=== PATIENT | female | born 1990 | race Caucasian/White ===

== ENCOUNTER 2022-09-26 12:16 | Inpatient (IN) ==
[2022-09-26] MEDS ORDERED: SODIUM CHLORIDE 0.9% 1000ML 1,000 ML IV ONE (13:06)
[2022-09-26 13:46] LABS: Basophils # (auto) 0.08 K/uL (0-0.2); Basophils % (auto) 0.6 %; Eosinophils # (auto) 0.44 K/uL (0-0.50); Hematocrit (blood only) 37.8 % (37.0-47.0); Hemoglobin 11.8 g/dl (12.0-16.0); Immature Granulocytes # (auto) 0.06 K/uL (0.01-0.20); Immature Granulocytes % (auto) 0.4 %; Lymphocytes # (auto) 2.57 K/uL (1.2-3.4); Lymphocytes % (auto) 17.8 %; Mean Corpuscular Hemoglobin 24.1 pg (25.0-34.0); Mean Corpuscular Hgb Conc 31.2 g/dL (32.0-36.0); Mean Corpuscular Volume 77.1 fL (80.0-100.0); Mean Platelet Volume 10.2 fL (9.4-12.4); Monocytes # (auto) 0.86 K/uL (0.11-0.59); Monocytes % (auto) 5.9 %; Neutrophils # (auto) 10.46 K/uL (1.40-6.50); Neutrophils % (auto) 72.3 %; Platelet Count 411 K/uL (130-400); RDW Coefficient of Variation 15.3 % (11.5-14.5); RDW Standard Deviation 42.5 fL (36.4-46.3); White Blood Count 14.47 K/ul (4.8-10.8)
[2022-09-26 14:08] LABS: Albumin Globulin Ratio 1.2 (0.9-2); Albumin Level 4.1 gm/dl (3.4-5.0); BUN Creatinine Ratio 19.2 (10-20); Bilirubin,Total 0.3 mg/dl (0.2-1.0); Calcium 9.5 mg/dl (8.6-10.3); Creatinine Clr Calc Pharmacy 147.6 ml/min; Est GFR (African American) 124.5 ml/min; Est GFR (Non-African American) 107.5 ml/min; Globulin 3.4 gm/dl (2.5-4.0); Potassium 4.1 mmol/L (3.5-5.1); Total Protein 7.5 gm/dl (6.0-8.3)
[2022-09-26] MEDS ORDERED: OPTIRAY 320 100ml IV ONE (14:21)
[2022-09-26 14:22] LABS: Pregnancy Test, Serum Negative (Negative)
[2022-09-26] MEDS ORDERED: cefTRIAXone SODIUM 2,000 MG/70 ML BAG IV STA (14:26)
[2022-09-26] MEDS ORDERED: metroNIDAZOLE 500 MG/100 ML BAG IV STA (14:26)
[2022-09-26 14:37] LABS: Procalcitonin < 0.05 ng/ml (0-0.5)
--- NOTE | 2022-09-26 15:45 | CT Scan Report ---
CT soft tissue neck w con HISTORY: 32 years-old Female Left facial swelling acute left-sided facial swelling COMPARISON: None TECHNIQUE: Multiple axial CT images of the soft tissues of the neck were obtained following the intra venous administration of 91 mL Optiray 320. A dose lowering technique was used consistent with the pr incipals of RENÉE. FINDINGS: The imaged intracranial structures are unremarkable. The orbits and soft tissues are within normal li mits. Patent airway. Unremarkable appearance of the parotid, submandibular and parotid glands. Vascul ature of the neck is within normal limits. Residual thymic tissue in the anterior mediastinum. Border line enlarged cervical chain lymph nodes measure up to 10 mm. Mild mucosal thickening of the maxillary sinuses. Mastoid air cells are clear. Odontogenic disease in cludes a 1.6 cm periapical cyst involving the roots of the left mandibular paracentral incisor, canin e and first bicuspid with first bicuspid root canal changes. There is anterior cortical dehiscence wi th a peripherally enhancing abscess within the adjacent soft tissues measuring 2.1 x 0.6 cm. Moderate adjacent left mandibular cellulitis changes. No acute fracture. Straightening of the normal cervical lordosis. IMPRESSION: 1. Odontogenic disease with left mandibular periapical cyst formation resulting in associated anterio r cortical dehiscence. 2. 2.1 cm abscess within the adjacent soft tissues with moderate cellulitis changes. ACT 112: Negative or not required by law. The above report was generated using voice recognition software. It may contain grammatical, syntax o r spelling errors. Electronically signed by: Nicholas Alvarado M.D. 09/26/2022 3:44 PM
--- NOTE | 2022-09-26 16:03 | Emergency Department Note ---
Impression & Plan Facial cellulitis, Periapical abscess with facial involvement ED Provider Note CHIEF COMPLAINT: Left-sided facial swelling HISTORY OF PRESENT ILLNESS: This 32-year-old female patient presents to the emergency department via private vehicle for evaluation of left-sided facial swelling. This occurred approximately 1.5 weeks ago. She was seen by [facility] urgent care and diagnosed with a left facial cellulitis associated with odontogenic abscess. The patient did have outpatient CT scan and labs completed. She was started on clindamycin. She has almost completed the clindamycin course, but has 1 day left tomorrow, but when she awoke today, the left side of her face was more swollen than usual. She denies any fever. She has had some intermittent chills. No body aches. No discharge from the mouth. The patient did contact her dentist but was not established with an outpatient follow-up appointment due to the acute infection patient reports her pain is an 8/10 and describes it as sharp and aching. REVIEW OF SYSTEMS: A 10 system review of systems was performed with positives and pertinent negatives listed in the history of present illness. All other systems were reviewed and are negative. ALLERGIES: Penicillin PHYSICAL EXAM: VITALS: Vitals are noted on the nurse's note and reviewed by myself. Vital signs stable. GENERAL: This is a 32 year old female, in no acute distress, nondiaphoretic, well-developed well-nourished. SKIN: Edema of the left side of the face overlying the mandible and the chin. There is no erythema. There is some induration, but no fluctuance in this area. The skin was without rashes, erythema, edema, or bruising. There is no tenting of the skin. Capillary refill less than 2 seconds. HEAD: Normocephalic atraumatic. EARS: External auditory canals clear, tympanic membranes pearly ceron without erythema or effusion bilaterally. No hemotympanum. Negative magallanes sign EYES: Pupils equal round and reactive to light and accommodation. Conjunctivae without injection, sclerae without icterus. Extraocular movements intact. NOSE: Patent, turbinates without inflammation or discharge. No sinus tenderness. MOUTH: Edema of the gingiva and buccal mucosa on the left lower mandible. Mucous membranes moist. Tonsils are not enlarged. Pharynx without erythema or exudate. Uvula midline. Airway patent. Tongue does not deviate. NECK: Supple without nuchal rigidity. No lymphadenopathy. No JVD. HEART: Regular rate and rhythm without murmurs gallops or rubs. LUNGS: Clear to auscultation bilaterally without wheezes, rales or rhonchi. No retractions or accessory muscle use. MUSCULOSKELETAL: No muscle atrophy, erythema, or edema noted. Full range of motion without joint tenderness in all extremities. No tenderness to palpation. Normal gait. Strength 5/5 throughout. NEURO: Patient was alert and oriented to person place and time. No focal neurological deficits. An order was placed for continuous clinical research monitor. The monitor showed a normal sinus rhythm at a ventricular rate of 82 bpm, per my interpretation. EMERGENCY DEPARTMENT COURSE: The patient was seen and evaluated as above. I did consult with the ED human services case manager to obtain medical records from [facility] outpatient work-up completed last week. I did review the previous urgent care note as well as the outpatient CT scan which was completed. IV access obtained, labs drawn. Patient was medicated with IV fluids. I discussed the case with Jennifer, ED pharmacist, who recommended starting the patient on ceftriaxone and metronidazole. I did discuss the case with Dr. Conklin, maxillofacial surgeon on-call. He recommends updating CT scan, admitting the patient for IV antibiotics and he will likely perform I&D due to the abscess. He did request the patient remain n.p.o. CT imaging was reviewed by myself and radiologist as noted. "1. 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 2. 2.1 cm abscess within the adjacent soft tissues with moderate cellulitis changes." Labs reviewed. Labs concerning for leukocytosis of 14,000. No significant anemia or thrombocytopenia. Renal, hepatic function and electrolytes without significant abnormality. hCG negative. Procalcitonin less than 0.05. COVID-19 testing is negative. I discussed case with manager e commerce I discussed the case with Sadie Anderson PA-C with [facility] hospitalist group. She did agree to see and evaluate the patient for admission. Differential diagnosis includes dental caries, dental abscess, Ludwigs angina, Vincent angina, dental fracture, facial cellulitis, parotitis, osteomyelitis, sinus infection, peritonsillar abscess, malignancy, among other I attest that I have personally reviewed the patient's current medication list. Blood Pressure Screening: Patient was found to have a slightly elevated blood pressure due to circumstances. I do not believe that the patient requires hypert ension monitoring. The chart was completed utilizing [employer] voice recognition software. Gra mmatical errors, random word insertions, pronoun errors, and incomplete sentences are an occasional consequence of this system due to software limitations, ambient noise, and hardware issues. Any formal questions or concerns about the content, text, or information contained within the body of this dictation should be directly addressed to the provider for clarification. Past Med/Surg History Medical History GERD (gastroesophageal reflux disease) No pertinent past medical history Surgical History (Updated 09/26/22 @ 16:58 by Sadie Anderson PA-C) No pertinent past surgical history Family History Mother Epilepsy and recurrent seizures Other Breast cancer Diabetes Hypertension Thyroid disorder Social History Smoking Status: Never smoker Second Hand Exposure: No; Do You Dip or Chew Tobacco: No; Tobacco Cessation Education Requested by Patient: No Hx Alcohol Use: Yes Alcohol type: beer Hx Substance Use: No Preferred Language: Azerbaijani Communication Ability: Effective Battery Repairer Required: No Beliefs That Will Affect Care: None Current Living Situation: Other Current Living Situation Comment: With daughter current occupational status: employed 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 [employer] Other Information That Helps Us Care for You: No Feels Safe at Home: Yes Safety Concerns: Feels Safe At This Time Allergies Allergies Allergy/AdvReac Type Severity Reaction Status Date / Time Penicillins Allergy Unknown Verified 09/01/10 21:44 Home Meds Home Medications Medication Instructions Recorded Confirmed esomeprazole magnesium 20 mg 20 mg PO DAILY 10/31/20 09/26/22 capsule,delayed release (Nexium) Results & Data (ED) Vital Signs Vital Signs - 24 hr 09/26/22 12:22 09/26/22 13:03 09/26/22 13:29 Temperature 36.8 C Temperature Source Temporal Artery Scan Pulse Rate 89 Respiratory Rate 17 Respiratory Effort / Characteristics Non-Labored Spontaneous Respiratory Depth Normal Normal Respiratory Pattern Regular Blood Pressure 138/91 Blood Pressure Mean 106 Pulse Oximetry 99 Oxygen Delivery Method Room Air Room Air Room Air Sepsis Recent Fever Within 48 Hours No Sepsis New/Unexplained Change in Mental Status No Sepsis Action Taken by Nursing No Action Required Laboratory Data 09/26/22 13:27 09/26/22 13:27 Lab Results 09/26/22 09/26/22 09/26/22 Range/Units 13:27 13: 13:27 WBC 14.47 H (4.8-10.8) K/ul RBC 4.90 (4.20-5.40) M/uL Hgb 11.8 L (12.0-16.0) g/dl Hct 37.8 (37.0-47.0) % MCV 77.1 L (80.0-100.0) fL MCH 24.1 L (25.0-34.0) pg MCHC 31.2 L (32.0-36.0) g/dL RDW Std Deviation 42.5 (36.4-46.3) fL RDW Coeff of Claudia 15.3 H (11.5-14.5) % Plt Count 411 H (130-400) K/uL MPV 10.2 (9.4-12.4) fL Immature Gran % (Auto) 0.4 % Neut % (Auto) 72.3 % Lymph % (Auto) 17.8 % [place] % (Auto) 5.9 % Eos % (Auto) 3.0 % Baso % (Auto) 0.6 % Neut # (Auto) 10.46 H (1.40-6.50) K/uL Lymph # (Auto) 2.57 (1.2-3.4) K/uL [place] # (Auto) 0.86 H (0.11-0.59) K/uL Eos # (Auto) 0.44 (0-0.50) K/uL Baso # (Auto) 0.08 (0-0.2) K/uL Immature Gran # (Auto) 0.06 (0.01-0.20) K/uL Sodium 138 (136-145) mmol/L Potassium 4.1 (3.5-5.1) mmol/L Chloride 106 (98-107) mmol/L Carbon Dioxide 26 (21-32) mmol/L Anion Gap 6 (3-11) BUN 14 (6-23) mg/dl Creatinine 0.73 (0.6-1.2) mg/dl Est Cr Clr Drug Dosing 147.6 ml/min Est GFR ( Amer) 124.5 ml/min Est GFR (Non-Af Amer) 107.5 ml/min BUN/Creatinine Ratio 19.2 (10-20) Glucose 100 H (70-99(Fasting)) mg/dl Calcium 9.5 (8.6-10.3) mg/dl Total Bilirubin 0.3 (0.2-1.0) mg/dl AST 11 L (13-39) U/L ALT 13 (7-52) U/L Alkaline Phosphatase 63 (34-104) U/L Total Protein 7.5 (6.0-8.3) gm/dl Albumin 4.1 (3.4-5.0) gm/dl Globulin 3.4 (2.5-4.0) gm/dl Albumin/Globulin Ratio 1.2 (0.9-2) Procalcitonin < 0.05 (0-0.5) ng/ml HCG, Qual Negative (Negative) SARS-CoV-2, RNA, NAAT (NEGATIVE) 09/26/22 Range/Units 14:42 WBC (4.8-10.8) K/ul RBC (4.20-5.40) M/uL Hgb (12.0-16.0) g/dl Hct (37.0-47.0) % MCV (80.0-100.0) fL MCH (25.0-34.0) pg MCHC (32.0-36.0) g/dL RDW Std Deviation (36.4-46.3) fL RDW Coeff of Claudia (11.5-14.5) % Plt Count (130-400) K/uL MPV (9.4-12.4) fL Immature Gran % (Auto) % Neut % (Auto) % Lymph % (Auto) % [place] % (Auto) % Eos % (Auto) % Baso % (Auto) % Neut # (Auto) (1.40-6.50) K/uL Lymph # (Auto) (1.2-3.4) K/uL [place] # (Auto) (0.11-0.59) K/uL Eos # (Auto) (0-0.50) K/uL Baso # (Auto) (0-0.2) K/uL Immature Gran # (Auto) (0.01-0.20) K/uL Sodium (136-145) mmol/L Potassium (3.5-5.1) mmol/L Chloride (98-107) mmol/L Carbon Dioxide (21-32) mmol/L Anion Gap (3-11) BUN (6-23) mg/dl Creatinine (0.6-1.2) mg/dl Est Cr Clr Drug Dosing ml/min Est GFR ( Amer) ml/min Est GFR (Non-Af Amer) ml/min BUN/Creatinine Ratio (10-20) Glucose (70-99(Fasting)) mg/dl Calcium (8.6-10.3) mg/dl Total Bilirubin (0.2-1.0) mg/dl AST (13-39) U/L ALT (7-52) U/L Alkaline Phosphatase (34-104) U/L Total Protein (6.0-8.3) gm/dl Albumin (3.4-5.0) gm/dl Globulin (2.5-4.0) gm/dl Albumin/Globulin Ratio (0.9-2) Procalcitonin (0-0.5) ng/ml HCG, Qual (Negative) SARS-CoV-2, RNA, NAAT NEGATIVE (NEGATIVE) Administered Medications Discontinued Medications Sodium Chloride (Nss 1000ml) 1,000 mls @ 999 mls/hr IV .[id number] ONE Stop: 09/26/22 14:06 Last Infusion: 09/26/22 15:04 Dose: 0 mls/hr Documented By: Admin: 09/26/22 13:23 Dose: 999 mls/hr Documented By: SAMIR Ceftriaxone Sodium (Rocephin) 2,000 mg in 70 mls @ 140 mls/hr IV NOW STA Stop: 09/26/22 14:55 Last Infusion: 09/26/22 15:13 Dose: 0 mls/hr Documented By: Admin: 09/26/22 14:41 Dose: 140 mls/hr Documented By: CASTRO Metronidazole (Flagyl) 500 mg in 100 mls @ 100 mls/hr IV NOW STA; Protocol Stop: 09/26/22 15:25 Last Infusion: 09/26/22 16:27 Dose: 0 mls/hr Documented By: Admin: 09/26/22 15:24 Dose: 100 mls/hr Documented By: Ioversol (Optiray 320 100ml) 91 ml IV ONCE ONE Stop: 09/26/22 14:22 Last Admin: 09/26/22 14:21 Dose: 91 ml Documented By: HUDSON Imaging Data Radiologist's Impression: Soft Tissue Neck CT 09/26/22 13:29 CT soft tissue neck w con HISTORY: 32 years-old Female Left facial swelling acute left-sided facial swelling COMPARISON: None TECHNIQUE: Multiple axial CT images of the soft tissues of the neck were obtained following the intravenous administration of 91 mL Optiray 320. A dose lowering technique was used consistent with the principals of ALARA. FINDINGS: The imaged intracranial structures are unremarkable. The orbits and soft tissues are within normal limits. Patent airway. Unremarkable appearance of the parotid, submandibular and parotid glands. Vasculature of the neck is within normal limits. Residual thymic tissue in the anterior mediastinum. Borderline enlarged cervical chain lymph nodes measure up to 10 mm. Mild mucosal thickening of the maxillary sinuses. Mastoid air cells are clear. Odontogenic disease includes a 1.6 cm periapical cyst involving the roots of the left mandibular paracentral incisor, canine and first bicuspid with first bicuspid root canal changes. There is anterior cortical dehiscence with a peripherally enhancing abscess within the adjacent soft tissues measuring 2.1 x 0.6 cm. Moderate adjacent left mandibular cellulitis changes. No acute fracture. Straightening of the normal cervical lordosis. IMPRESSION: 1. 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 2. 2.1 cm abscess within the adjacent soft tissues with moderate cellulitis changes. ACT 112: Negative or not required by law. The above report was generated using voice recognition software. It may contain grammatical, syntax or spelling errors. Electronically signed by: Nicholas Alvarado M.D. 09/26/2022 3:44 PM Discharge Plan Visit Data Chief Complaint: Facial Injury/Pain Stated Complaint: FACIAL SWELLING ED Provider: Juan Piña ED Midlevel Provider: Jess Ballard Discharge Problem: Facial cellulitis, Periapical abscess with facial involvement Discharge Instructions Interventions: ED Discharge Assessment Last Done: 09/26/22 17:26
--- NOTE | 2022-09-26 17:04 | History & Physical Report ---
Date of Service September 26, 2022 Assessment & Plan (1) Facial cellulitis: (2) Periapical abscess with facial involvement: Plan 32 yr old F presents to ED 2/2 L facial swelling x 1.5 weeks. Failed outpatient clindamycin Same day CT revealed 1. 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 2. 2.1 cm abscess within the adjacent soft tissues with moderate cellulitis changes. Facial Cellulitis Periapical abscess with facial involvement admit to medical consult Dr. Conklin will keep NPO for now until see by Dr. Conklin continue IV antibiotics with 2g Rocephin and IV flagyl 500mg TID add daily probiotic ICE TID IV toradol to mild-mod pain and IV morphine severe pain Anemia hgb 11.8 pt does not get menses due to having a nexplanon no bleeding cbc reveal microcytic indicies check iron panel in a.m. DVT ppx: None 2/2 likely surgical procedure and low risk, encourage ambulation FULL CODE Pt was seen and examined in collaboration with Dr. Kidd, please see addendum A total of 75 was spent coordinating, documenting, and providing care for this patient excluding time spent in the performance of separately billed services. This included personally viewing all current laboratories and imaging studies, medication reconciliation, outpatient chart review, and discussion with specialists. History of Present Illness Chief Complaint: L facial swelling x 1.5 week. Primary Care Provider: NO PCP This is a 32 year old F who has a significant PMH of GERD and is an [employer] and local [employer] who presents to ED 2/2 L sided facial swelling and pain. She states she does not have any tooth pain, but more pain from the pressure of the swelling. She has pain with opening mouth but denies difficulty swallowing or drooling. She denies systemic sx of fever, chills or sweats. She denies POSEY, dizziness, lightheaded, chest pain, sob, n/v/d or abd pain. She recently saw Urgent care and was prescribed clindamycin. She feels swelling has gotten worsen since starting antibiotic and when she woke up this morning felt much more swollen so came in for evaluation. Currently she states her pain is a 5/10 and is localized. She has utilitzed tylenol and ibuprofen at home with significant improvement. She has never had any surgery in past and states she still has her wisdom teeth. In ED patient was found to have slightly elevated white count of 14 K. She underwent soft tissue neck CT which revealed odontogenic disease with left mandibular periapical cyst formation resulting in associated anterior cortical dehiscence along with a 2.1 cm abscess within the adjacent soft tissue with moderate cellulitic changes. Due to history of penicillin allergy she was started on IV Rocephin and Flagyl. She was also noted to have a slight microcytic anemia with a hemoglobin of 11.8 and microcytic indices. Allergies Allergy/AdvReac Type Severity Reaction Status Date / Time Penicillins Allergy Unknown Verified 09/01/10 21:44 Home Medications Medication Instructions Recorded Confirmed Type esomeprazole magnesium 20 mg 20 mg PO DAILY 10/31/20 09/26/22 History capsule,delayed release (Nexium) Past Med/Surg History Medical History GERD (gastroesophageal reflux disease) No pertinent past medical history Surgical History (Updated 09/26/22 @ 16:58 by Sadie Anderson PA-C) No pertinent past surgical history Family History Mother Epilepsy and recurrent seizures Other Breast cancer Diabetes Hypertension Thyroid disorder Social History Smoking Status: Never smoker Second Hand Exposure: No; Do You Dip or Chew Tobacco: No; Tobacco Cessation Education Requested by Patient: No Hx Alcohol Use: Yes Alcohol type: beer Hx Substance Use: No Preferred Language: Canadian Communication Ability: Effective 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: No Beliefs That Will Affect Care: None Current Living Situation: Other Current Living Situation Comment: With daughter current occupational status: employed 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 [employer] Other Information That Helps Us Care for You: No Feels Safe at Home: Yes Safety Concerns: Feels Safe At This Time Review of Systems Review of Systems: All systems reviewed & are unremarkable except as noted in HPI & below Physical Exam Physical Exam: Constitutional: WD/WN, nontoxic appearing, vitals as above, NAD, sitting up in bed, pleasant, conversing easily Head: Normocephalic, Atraumatic Eyes: PERRL, conjunctivae normal, anicteric sclerae ENMT: external ear and nose normal, + edema/swelling to L mandibular/submandibular region, no erythema, tender to palpate, L cervical adenopathy, + Trismus Neck: trachea midline, no thyromegaly normal visual inspection Respiratory: normal respiratory effort, lungs clear to auscultation, no wheeze, rales, rhonchi. Normal insp/exp effort, no accessory muscle use Cardiovascular: RRR, no murmur, no edema Vessels: no JVD or carotid bruit Chest: normal inspection of chest Abdomen: normal bowel sounds, soft, nontender, no hepatosplenomegaly Musculoskeletal: no cyanosis or clubbing, extremities motor strength 5/5 Skin: no rashes, warm and dry normal turgor Neurologic: PERRL, EOMI, accommodation nl, no face palsy, no dysarthria CN's II-XI intact bilaterally and moves all extremities Psychiatric: A+Ox3, euthymic affect Lymphatic: no cervical or axillary lymphadenopathy : deferred Results & Data Results & Data Vital Signs (Past 12 Hours) Vital Signs Temp Pulse Resp BP Pulse Ox O2 Del Method 09/26/22 13:29 Room Air 09/26/22 13:03 Room Air 09/26/22 12:22 36.8 C 89 17 138/91 99 Room Air Diagnostic Findings Soft Tissue Neck CT 09/26/22 13:29 CT soft tissue neck w con HISTORY: 32 years-old Female Left facial swelling acute left-sided facial swelling COMPARISON: None TECHNIQUE: Multiple axial CT images of the soft tissues of the neck were obtained following the intravenous administration of 91 mL Optiray 320. A dose lowering technique was used consistent with the principals of ALARA. FINDINGS: The imaged intracranial structures are unremarkable. The orbits and soft tissues are within normal limits. Patent airway. Unremarkable appearance of the parotid, submandibular and parotid glands. Vasculature of the neck is within normal limits. Residual thymic tissue in the anterior mediastinum. Borderline enlarged cervical chain lymph nodes measure up to 10 mm. Mild mucosal thickening of the maxillary sinuses. Mastoid air cells are clear. Odontogenic disease includes a 1.6 cm periapical cyst involving the roots of the left mandibular paracentral incisor, canine and first bicuspid with first bicuspid root canal changes. There is anterior cortical dehiscence with a peripherally enhancing abscess within the adjacent soft tissues measuring 2.1 x 0.6 cm. Moderate adjacent left mandibular cellulitis changes. No acute fracture. Straightening of the normal cervical lordosis. IMPRESSION: 1. 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 2. 2.1 cm abscess within the adjacent soft tissues with moderate cellulitis changes. ACT 112: Negative or not required by law. The above report was generated using voice recognition software. It may contain grammatical, syntax or spelling errors. Electronically signed by: Nicholas Alvarado M.D. 09/26/2022 3:44 PM Medications Administered Medication List Discontinued Medications Sodium Chloride (Nss 1000ml) 1,000 mls @ 999 mls/hr IV .Q1H1M ONE Stop: 09/26/22 14:06 Last Infusion: 09/26/22 15:04 Dose: 0 mls/hr Documented By: Admin: 09/26/22 13:23 Dose: 999 mls/hr Documented By: SAMIR Ceftriaxone Sodium (Rocephin) 2,000 mg in 70 mls @ 140 mls/hr IV NOW STA Stop: 09/26/22 14:55 Last Infusion: 09/26/22 15:13 Dose: 0 mls/hr Documented By: Admin: 09/26/22 14:41 Dose: 140 mls/hr Documented By: CASTRO Metronidazole (Flagyl) 500 mg in 100 mls @ 100 mls/hr IV NOW STA; Protocol Stop: 09/26/22 15:25 Last Infusion: 09/26/22 16:27 Dose: 0 mls/hr Documented By: Admin: 09/26/22 15:24 Dose: 100 mls/hr Documented By: AB Ioversol (Optiray 320 100ml) 91 ml IV ONCE ONE Stop: 09/26/22 14:22 Last Admin: 09/26/22 14:21 Dose: 91 ml Documented By: HUDSON COVID-19 Results Results COVID-19 Adm Lab Results: RBC 4.90 M/uL (4.20-5.40) 09/26/22 WBC 14.47 K/ul (4.8-10.8) H 09/26/22 Hgb 11.8 g/dl (12.0-16.0) L 09/26/22 Hct 37.8 % (37.0-47.0) 09/26/22 Plt Count 411 K/uL (130-400) H 09/26/22 Neutrophils (%) (Auto) 72.3 % 09/26/22 Lymphocytes (%) (Auto) 17.8 % 09/26/22 Monocytes # (Auto) 0.86 K/uL (0.11-0.59) H 09/26/22 Eosinophils # (Auto) 0.44 K/uL (0-0.50) 09/26/22 Immature Granulocyte % (Auto) 0.4 % 09/26/22 Neutrophils # (Auto) 10.46 K/uL (1.40-6.50) H 09/26/22 Lymphocytes # (Auto) 2.57 K/uL (1.2-3.4) 09/26/22 Monocytes # (Auto) 0.86 K/uL (0.11-0.59) H 09/26/22 Eosinophils # (Auto) 0.44 K/uL (0-0.50) 09/26/22 Basophils # (Auto) 0.08 K/uL (0-0.2) 09/26/22 Immature Granulocyte # (Auto) 0.06 K/uL (0.01-0.20) 3 Na 138 mmol/L (136-145) 09/26/22 K 4.1 mmol/L (3.5-5.1) 09/26/22 Cl 106 mmol/L (98-107) 09/26/22 CO2 26 mmol/L (21-32) 09/26/22 Anion Gap 6 (3-11) 09/26/22 BUN 14 mg/dl (6-23) 09/26/22 Creatinine 0.73 mg/dl (0.6-1.2) 09/26/22 BUN/Creatinine Ratio 19.2 (10-20) 09/26/22 Glucose Level 100 mg/dl (70-99(Fasting)) H 09/26/22 Ca 9.5 mg/dl (8.6-10.3) 09/26/22 Total Bilirubin 0.3 mg/dl (0.2-1.0) 09/26/22 AST/SGOT 11 U/L (13-39) L 09/26/22 ALT/SGPT 13 U/L (7-52) 09/26/22 Alkaline Phosphatase 63 U/L (34-104) 09/26/22 Total Protein 7.5 gm/dl (6.0-8.3) 09/26/22 Albumin 4.1 gm/dl (3.4-5.0) 09/26/22 Globulin 3.4 gm/dl (2.5-4.0) 09/26/22 Albumin/Globulin Ratio 1.2 (0.9-2) 09/26/22 Procalcitonin < 0.05 ng/ml (0-0.5) 09/26/22 SARS-CoV-2, RNA, NAAT NEGATIVE (NEGATIVE) 09/26/22 Code Status & VTE Plan Code Status FULL CODE Supervising Physician Co-Signing Physician Notes I have seen and examined the patient and have discussed the case with the provider above. I agree with the assessment and plan as stated. 32 yo female with dental infection as above without sepsis, being admitted after failure of outpatient oral antibiotic therapy. OMFS has been consulted for consideration of I&D and she has been covered with intravenous Rocephin and Flagyl which will be continued. She is morbidly obese on exam but is otherwise stable and in NAD. She rates her pain as 5/10 and has been able to eat. This happened after eatin g some chips while at work. ENT exam reveals a visible pocket of pus around the lower front teeth on the labial side, associated lower left cheek swelling without erythema suggestive of cellulitis and swollen tender submandibular and cervical lymph nodes. She has scant TTP of maxillary sinus and TMs are pearly bilateral with no evidence of fluid or erythema. Cont IV abx, OFMS recommendations pending. Likely to dc home in 1-2 days pending response to treatment. DO Bernabe
[2022-09-26] MEDS ORDERED: ONDANSETRON INJ 2 MG/ML 2 ML VIAL IV PRN (17:48)
[2022-09-26] MEDS ORDERED: MoRPHine SULFATE 2 MG/ML CARP IV PRN (17:48)
[2022-09-26] MEDS: KETOROLAC 30 MG/ML VIAL IV PRN (18:18)
--- NOTE | 2022-09-26 21:10 | Oral/Maxillofacial Consult ---
Date of Consultation September 26, 2022 Assessment & Plan (1) Periapical abscess with facial involvement: (2) Facial cellulitis: History of Present Illness Attending Physician: Larisa Kidd DO History of Present Illness Oral Maxillofacial Surgery Exam Present Complaint: I have pain/swelling/drainage from my infected lower left pre-molar teeth. Symptoms have been ongoing for a while. Was stated on clindamycin but failed out patient therapy Oral Exam: Finding-Very swollen tender gingival tissue with deep pocket formation associated with 21-22-23-. While I was examining Yazmin the abscess spontaneously drained-a lot of pus was expressed I had her massage her face and more pus was expressed.She has a history of a po ssible root canal on # 21 In my opinion this looks to be a failing root canal with extension to the adjacent teeth. Imaging: CT soft tissue neck w con HISTORY: 32 years-old Female Left facial swelling acute left-sided facial swelling COMPARISON: None TECHNIQUE: Multiple axial CT images of the soft tissues of the neck were obtained following the intravenous administration of 91 mL Optiray 320. A dose lowering technique was used consistent with the principals of ALARA. FINDINGS: The imaged intracranial structures are unremarkable. The orbits and soft tissues are within normal limits. Patent airway. Unremarkable appearance of the parotid, submandibular and parotid glands. Vasculature of the neck is within normal limits. Residual thymic tissue in the anterior mediastinum. Borderline enlarged cervical chain lymph nodes measure up to 10 mm. Mild mucosal thickening of the maxillary sinuses. Mastoid air cells are clear. Odontogenic disease includes a 1.6 cm periapical cyst involving the roots of the left mandibular paracentral incisor, canine and first bicuspid with first bicuspid root canal changes. There is anterior cortical dehiscence with a peripherally enhancing abscess within the adjacent soft tissues measuring 2.1 x 0.6 cm. Moderate adjacent left mandibular cellulitis changes. No acute fracture. Straightening of the normal cervical lordosis. IMPRESSION: 1. 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 2. 2.1 cm abscess within the adjacent soft tissues with moderate cellulitis changes. Soft tissue: Swelling left vestibular fold with spontaneous drainage floor of the mouth, tongue, hard/soft palate, posterior pharyngeal area all with in normal limits, no pathology or abnormal findings noted other then the left lower vestibular space associated with teeth 21-23 No lesions noted that require follow up or Bx. Oral Care: Overall oral care is good Occlusion: Class I TMJ exam: No pop, clicking, pain, good ROM, No history of TMJ injury or dysfunction Periodontal exam: Overall the gingival tissue is without evidence of periodontal pathology other the th elower left side Head/Neck exam: Neck is supple, FROM, Able to extend and flex neck w/o difficulty, no masses, no abnormalities, no airway issues. Treatment Plan: I suggest IV antibiotics for at least 18-24 hours and if doing well can be discharged on oral antibiotics I suggested massage and oral hygiene care Will need follow up with me in 09-23 ( she has my card) to make sure the infection has resolved. She will need to get dental X Rays and vitality testing on the other teeth to determine if the other teeth will need root canals vs extractions. I reviewed the treatment plan and consent with the patient and her boy friend. Understanding was expressed. Time was given for questions regarding the exterminator helper termite treatment plan. She understands that we MUST get the infection resolved then develop a defini tive dental plan Home care reviewed: tooth brushing, rinsing, follow up care with Dr Conklin. diet=as tolerated Call Dr Conklin in 09-23 for follow up Need a general dental exam with X Rays and vitality testing D/C tomorrow afternoon and change to oral antibiotics Peridex and massage Allergies Allergy/AdvReac Type Severity Reaction Status Date / Time Penicillins Allergy Unknown Verified 09/01/10 21:44 Home Medications Medication Instructions Recorded Confirmed Type esomeprazole magnesium 20 mg 20 mg PO DAILY 10/31/20 09/26/22 History capsule,delayed release (Nexium) Patient History Medical History GERD (gastroesophageal reflux disease) No pertinent past medical history Surgical History (Updated 09/26/22 @ 16:58 by Sadie Anderson PA-C) No pertinent past surgical history Family History Mother Epilepsy and recurrent seizures Other Breast cancer Diabetes Hypertension Thyroid disorder Social History Smoking Status: Never smoker Second Hand Exposure: No; Do You Dip or Chew Tobacco: No; Tobacco Cessation Education Requested by Patient: No Hx Alcohol Use: Yes Alcohol type: beer Hx Substance Use: No Preferred Language: Maldivian Communication Ability: Effective Manager Insurance Required: No Beliefs That Will Affect Care: None Current Living Situation: Other Current Living Situation Comment: With daughter current occupational status: employed 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 Other Information That Helps Us Care for You: No Feels Safe at Home: Yes Safety Concerns: Feels Safe At This Time Results & Data Vital Signs (Past 12 Hours) Vital Signs Temp Pulse Pulse Pulse Resp BP BP 09/26/22 17:48 36.7 C 82 16 142/94 H 09/26/22 17:51 36.7 C 82 16 142/94 H 09/26/22 17:00 88 18 140/67 09/26/22 13:29 09/26/22 13:03 09/26/22 12:22 36.8 C 89 17 138/91 Pulse Ox O2 Del Method 09/26/22 17:48 100 Room Air 09/26/22 17:51 100 Room Air 09/26/22 17:00 100 Room Air 09/26/22 13:29 Room Air 09/26/22 13:03 Room Air 09/26/22 12:22 99 Room Air PG Care Time/CCT Total # of Minutes Spent Total Time Spent with Patient: Total time spent is greater than 50% in coordination of care (as documented) at patient's floor/unit and/or counseling patient: Coding Level of Care Code 59697 IN/OBS CONSULT LVL 2,35M Diagnoses Periapical abscess with facial involvement K04.7 Facial cellulitis L03.211
[2022-09-26] MEDS ORDERED: CHLORHEXIDINE GLUCONATE 0.12% 480 ML MT PRN (21:13)
[2022-09-26] MEDS: metroNIDAZOLE 500 MG/100 ML BAG IV SCH (22:58)
[2022-09-27 06:11] LABS: Basophils # (auto) 0.06 K/uL (0-0.2); Basophils % (auto) 0.5 %; Eosinophils # (auto) 0.34 K/uL (0-0.50); Eosinophils % (auto) 2.7 %; Hematocrit (blood only) 32.9 % (37.0-47.0); Hemoglobin 10.6 g/dl (12.0-16.0); Immature Granulocytes # (auto) 0.04 K/uL (0.01-0.20); Immature Granulocytes % (auto) 0.3 %; Lymphocytes # (auto) 2.98 K/uL (1.2-3.4); Lymphocytes % (auto) 23.4 %; Mean Corpuscular Hemoglobin 24.1 pg (25.0-34.0); Mean Corpuscular Hgb Conc 32.2 g/dL (32.0-36.0); Mean Corpuscular Volume 74.9 fL (80.0-100.0); Mean Platelet Volume 10.2 fL (9.4-12.4); Monocytes # (auto) 0.83 K/uL (0.11-0.59); Monocytes % (auto) 6.5 %; Neutrophils # (auto) 8.49 K/uL (1.40-6.50); Neutrophils % (auto) 66.6 %; Platelet Count 370 K/uL (130-400); RDW Coefficient of Variation 15.2 % (11.5-14.5); RDW Standard Deviation 41.3 fL (36.4-46.3); Red Blood Count 4.39 M/uL (4.20-5.40); White Blood Count 12.74 K/ul (4.8-10.8)
[2022-09-27 06:26] LABS: Albumin Globulin Ratio 1.2 (0.9-2); Albumin Level 3.5 gm/dl (3.4-5.0); BUN Creatinine Ratio 20.3 (10-20); Bilirubin,Total 0.4 mg/dl (0.2-1.0); Calcium 8.4 mg/dl (8.6-10.3); Creatinine Clr Calc Pharmacy 182.3 ml/min; Est GFR (African American) 138.6 ml/min; Est GFR (Non-African American) 119.6 ml/min; Potassium 3.7 mmol/L (3.5-5.1); Total Protein 6.5 gm/dl (6.0-8.3)
[2022-09-27 06:45] LABS: Ferritin 14.4 ng/ml (8-388)
[2022-09-27] MEDS: KETOROLAC 30 MG/ML VIAL IV PRN (07:26)
[2022-09-27] MEDS: metroNIDAZOLE 500 MG/100 ML BAG IV SCH ×3 (08:00→22:36)
[2022-09-27] MEDS: SACCHAROMYCES BOULARDII 250 MG CAP PO SCH (09:06)
[2022-09-27] MEDS: cefTRIAXone SODIUM 2,000 MG in DEXTROSE 5% 50 ML IV SCH (15:13)
--- NOTE | 2022-09-27 17:10 | Hospitalist Progress Note ---
Date of Service September 27, 2022 Assessment & Plan (1) Facial cellulitis: (2) Periapical abscess with facial involvement: Plan 32yoF admitted with L facial cellulitis after failing outpt antibiotics. Facial Cellulitis Periapical abscess with facial involvement Pt with about 2 weeks of facial swelling and pain Failed outpatient clindamycin CT- "1. 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 2. 2.1 cm abscess within the adjacent soft tissues with moderate cellulitis changes." Evaluated by [facility] provider- appreciate recs Continue IV antibiotics with 2g Rocephin and IV flagyl 500mg TID Continue daily probiotic ICE TID Continue IV toradol for mild-mod pain, IV morphine severe pain Microcytic Anemia hgb showing stable anemia, pt does not get menses due to having a nexplanon cbc reveal microcytic indicies iron panel pending DVT ppx: None 2/2 likely surgical procedure and low risk, encourage ambulation FULL CODE Admission and Anticipated Discharge Date Admission Date: September 26, 2022 Subjective Seen this AM. States that her pain is much improved, slightly tender now with direct palpation of the left face. Denies fevers, chills Review of Systems Review of Systems: All systems reviewed & are unremarkable except as noted in Subjective Physical Exam Physical Exam: General: Alert, oriented. No acute distress Skin: No noted rashes or bruises Psych: Appropriate mood and affect Neuro: No gross deficits HEENT: NC/AT, slight swelling to left side of face CV: RRR Resp: Breath sounds clear bilaterally. Abdomen:Soft, nontender, nondistended. No guarding. No organomegaly appreciated. Extremities: No edema in lower extremities bilaterally. Results & Data Results & Data Vital Signs (Past 12 Hours) Vital Signs Temp Pulse Resp BP Pulse Ox Pulse Ox O2 Del Method 09/27/22 13:06 99 09/27/22 15:20 36.6 C 79 18 125/77 99 Room Air 09/27/22 07:11 36.6 C 76 18 124/88 98 Room Air O2 Del Method 09/27/22 13:06 Room Air 09/27/22 15:20 09/27/22 07:11
[2022-09-27] MEDS: PANTOprazole 40 MG TAB PO SCH (23:30)
[2022-09-28 06:33] LABS: Basophils # (auto) 0.07 K/uL (0-0.2); Basophils % (auto) 0.6 %; Eosinophils # (auto) 0.26 K/uL (0-0.50); Eosinophils % (auto) 2.3 %; Hematocrit (blood only) 35.3 % (37.0-47.0); Hemoglobin 11.1 g/dl (12.0-16.0); Immature Granulocytes # (auto) 0.05 K/uL (0.01-0.20); Immature Granulocytes % (auto) 0.4 %; Lymphocytes # (auto) 3.13 K/uL (1.2-3.4); Lymphocytes % (auto) 27.7 %; Mean Corpuscular Hemoglobin 23.9 pg (25.0-34.0); Mean Corpuscular Hgb Conc 31.4 g/dL (32.0-36.0); Mean Corpuscular Volume 75.9 fL (80.0-100.0); Mean Platelet Volume 10.2 fL (9.4-12.4); Monocytes # (auto) 0.83 K/uL (0.11-0.59); Monocytes % (auto) 7.3 %; Neutrophils # (auto) 6.98 K/uL (1.40-6.50); Neutrophils % (auto) 61.7 %; Platelet Count 381 K/uL (130-400); RDW Coefficient of Variation 15.2 % (11.5-14.5); RDW Standard Deviation 41.7 fL (36.4-46.3); Red Blood Count 4.65 M/uL (4.20-5.40); White Blood Count 11.32 K/ul (4.8-10.8)
[2022-09-28 06:47] LABS: BUN Creatinine Ratio 18.8 (10-20); Calcium 8.4 mg/dl (8.6-10.3); Creatinine Clr Calc Pharmacy 155.9 ml/min; Est GFR (African American) 131.6 ml/min; Est GFR (Non-African American) 113.6 ml/min; Potassium 3.7 mmol/L (3.5-5.1)
[2022-09-28 07:06] LABS: Ferritin 17.6 ng/ml (8-388)
[2022-09-28] MEDS: PANTOprazole 40 MG TAB PO SCH (07:41)
[2022-09-28] MEDS: metroNIDAZOLE 500 MG/100 ML BAG IV SCH ×3 (07:41→22:43)
[2022-09-28] MEDS: SACCHAROMYCES BOULARDII 250 MG CAP PO SCH (07:42)
[2022-09-28] MEDS: cefTRIAXone SODIUM 2,000 MG in DEXTROSE 5% 50 ML IV SCH (14:45)
--- NOTE | 2022-09-28 15:34 | Hospitalist Progress Note ---
Date of Service September 28, 2022 Assessment & Plan (1) Facial cellulitis: (2) Periapical abscess with facial involvement: Plan 32yoF admitted with L facial cellulitis after failing outpt antibiotics. Facial Cellulitis Periapical abscess with facial involvement Pt with about 2 weeks of facial swelling and pain Failed outpatient clindamycin CT- "1. 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 2. 2.1 cm abscess within the adjacent soft tissues with moderate cellulitis changes." Evaluated by [facility] provider- appreciate recs Continue IV antibiotics with 2g Rocephin and IV flagyl 500mg TID- once WBC wnl, can discharge with po abx with close pcp and dental f/u Continue daily probiotic ICE TID Continue IV toradol for mild-mod pain, IV morphine severe pain Vaginitis Pt with vaginal itching and discharge Prescribed diflucan PO 150mg Microcytic Anemia hgb showing stable anemia, pt does not get menses due to having a nexplanon iron panel- with noted low iron, supplement DVT ppx: None 2/2 likely surgical procedure and low risk, encourage ambulation FULL CODE Admission and Anticipated Discharge Date Admission Date: September 26, 2022 Subjective Pt seen this AM. States pain and swelling in face significantly improved. Would like to go home as she states she has a 9 year old daughter at home. Later in the day requesting treatment for vaginal discharge and itching, believes she might have a yeast infection while on the abx. Review of Systems Review of Systems: All systems reviewed & are unremarkable except as noted in Subjective Physical Exam Physical Exam: General: Alert, oriented. No acute distress Skin: No noted rashes or bruises Psych: Appropriate mood and affect Neuro: No gross deficits HEENT: NC/AT, swelling of face improved. CV: RRR Resp: Breath sounds clear bilaterally. Abdomen:Soft, nontender, nondistended. No guarding. No organomegaly appreciated. Extremities: No edema in lower extremities bilaterally. Results & Data Results & Data Vital Signs (Past 12 Hours) Vital Signs Temp Pulse Resp BP Pulse Ox O2 Del Method 09/28/22 07:28 36.6 C 84 16 127/81 96 Room Air
[2022-09-28] MEDS ORDERED: FLUCONAZOLE 50 MG TAB PO ONE (15:45)
[2022-09-29] MEDS: PANTOprazole 40 MG TAB PO SCH (08:18)
[2022-09-29] MEDS: SACCHAROMYCES BOULARDII 250 MG CAP PO SCH (08:18)
[2022-09-29] MEDS: metroNIDAZOLE 500 MG/100 ML BAG IV SCH (08:18)
[2022-09-29] MEDS ORDERED: FERROUS SULFATE 325 MG TAB PO SCH (09:00)
[2022-09-29 09:24] LABS: Basophils # (auto) 0.07 K/uL (0-0.2); Basophils % (auto) 0.6 %; Eosinophils # (auto) 0.24 K/uL (0-0.50); Eosinophils % (auto) 2.1 %; Hemoglobin 12.1 g/dl (12.0-16.0); Immature Granulocytes # (auto) 0.05 K/uL (0.01-0.20); Immature Granulocytes % (auto) 0.4 %; Lymphocytes # (auto) 2.67 K/uL (1.2-3.4); Lymphocytes % (auto) 23.5 %; Mean Corpuscular Hemoglobin 24.2 pg (25.0-34.0); Mean Corpuscular Hgb Conc 31.8 g/dL (32.0-36.0); Mean Corpuscular Volume 75.8 fL (80.0-100.0); Mean Platelet Volume 9.9 fL (9.4-12.4); Monocytes # (auto) 0.76 K/uL (0.11-0.59); Monocytes % (auto) 6.7 %; Neutrophils # (auto) 7.58 K/uL (1.40-6.50); Neutrophils % (auto) 66.7 %; Platelet Count 441 K/uL (130-400); RDW Coefficient of Variation 15.5 % (11.5-14.5); RDW Standard Deviation 41.7 fL (36.4-46.3); Red Blood Count 5.01 M/uL (4.20-5.40); White Blood Count 11.37 K/ul (4.8-10.8)
[2022-09-29 09:40] LABS: BUN Creatinine Ratio 18.6 (10-20); Calcium 9.3 mg/dl (8.6-10.3); Creatinine Clr Calc Pharmacy 153.6 ml/min; Potassium 3.9 mmol/L (3.5-5.1)
--- NOTE | 2022-09-29 11:28 | Discharge Summary ---
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 She states she does not have any tooth pain, but more pain from the pressure of the swelling. She has pain with opening mouth but denies difficulty swallowing or drooling. She denies systemic sx of fever, chills or sweats. She denies POSEY, dizziness, lightheaded, chest pain, sob, n/v/d or abd pain. She recently saw Urgent care and was prescribed clindamycin. She feels swelling has gotten worsen since starting antibiotic and when she woke up this morning felt much more swol dawson so came in for evaluation. Currently she states her pain is a 5/10 and is localized. She has utilitzed tylenol and ibuprofen at home with significant improvement. She has never had any surgery in past and states she still has her wisdom teeth. In ED patient was found to have slightly elevated white count of 14 K. She underwent soft tissue neck CT which revealed odontogenic disease with left mandibular periapical cyst formation resulting in associated anterior cortical dehiscence along with a 2.1 cm abscess within the adjacent soft tissue with moderate cellulitic changes. Due to history of penicillin allergy she was started on IV Rocephin and Flagyl. She was also noted to have a slight microcytic anemia with a hemoglobin of 11.8 and microcytic indices. Admission Exam Per Admitting Provider Constitutional: WD/WN, nontoxic appearing, vitals as above, NAD, sitting up in bed, pleasant, conversing easily Head: Normocephalic, Atraumatic Eyes: PERRL, conjunctivae normal, anicteric sclerae ENMT: external ear and nose normal, + edema/swelling to L mandibular/submandibular region, no erythema, tender to palpate, L cervical adenopathy, + Trismus Neck: trachea midline, no thyromegaly normal visual inspection Respiratory: normal respiratory effort, lungs clear to auscultation, no wheeze, rales, rhonchi. Normal insp/exp effort, no accessory muscle use Cardiovascular: RRR, no murmur, no edema Vessels: no JVD or carotid bruit Chest: normal inspection of chest Abdomen: normal bowel sounds, soft, nontender, no hepatosplenomegaly Musculoskeletal: no cyanosis or clubbing, extremities motor strength 5/5 Skin: no rashes, warm and dry normal turgor Neurologic: PERRL, EOMI, accommodation nl, no face palsy, no dysarthria CN's II-XI intact bilaterally and moves all extremities Psychiatric: A+Ox3, euthymic affect Lymphatic: no cervical or axillary lymphadenopathy : deferred Principal Diagnosis Tooth abscess, Facial cellulitis Discharge Exam General: Alert, oriented. No acute distress Skin: No noted rashes or bruises Psych: Appropriate mood and affect Neuro: No gross deficits HEENT: NC/AT, no visible swelling or redness of left face, no visible oral abscess CV: RRR Resp: Breath sounds clear bilaterally. Abdomen:Soft, nontender, nondistended. No guarding. No organomegaly appreciated. Extremities: No edema in lower extremities bilaterally. Discharge Data Allergies Allergy/AdvReac Type Severity Reaction Status Date / Time Penicillins Allergy Unknown Verified 09/01/10 21:44 Consultations 09/26/22 16:16 ED Decision to Admit Stat 09/26/22 16:20 Consult Oromaxillofacial Surgery Routine Ordered Studies 09/26/22 13:29 CT soft tissue neck w con Stat Hospital Course (1) Facial cellulitis: (2) Periapical abscess with facial involvement: Plan 32yoF admitted with L facial cellulitis in the setting of a tooth abscess after failing outpatient antibiotics. Facial Cellulitis Periapical abscess with facial involvement Pt presented with about 2 weeks of facial swelling and pain Failed outpatient clindamycin CT soft tissue/neck showed "1. 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 2.1 cm abscess within the adjacent soft tissues with moderate cellulitis changes." Evaluated by Oral and Maxillofacial Surgeon- appreciate recs. Dr. Conklin advised "massage and oral hygiene care...follow up with me in 7-10 ( she has my card) to make sure the infection has resolved...will need to get dental X Rays and vitality testing on the other teeth to determine if the other teeth will need root canals vs extractions." Was treated with IV Rocephin and IV flagyl 500mg TID, transitioned on discharge to PO cefdinir 300mg BID and Flagyl 500mg TID for 14 more days as her wbc was still slightly elevated. Advised to continue daily probiotic and Peridex mouthwash use as advised by Oral and Maxillofacial Surgeon No longer needed pain control on day of discharge. Pt states she does not have a pcp. Care will be coordinated for follow up for her, and she will contact Dr. Conklin's office as noted above. Vaginitis Pt with vaginal itching and discharge Given diflucan PO 150mg ONCE. Discharged with an additional dose to be taken 72 hours after the first dose if still symptomatic. Microcytic Anemia Hgb showing stable anemia, pt does not get menses due to having a nexplanon iron panel- with noted low iron, supplemented and discharged with PO supplementation. PCP followup Total Time Total Time Spent Total Time Spent (In Minutes): >30 minutes Discharge Plan Discharge Items Patient Disposition: Home - Self-Care Reason For Visit: FACIAL ABSCESS Discharge Diagnosis: Tooth abscess, facial cellulitis Activity: Resume your previous activity Non-emergency contact: Primary Care Provider and Surgeon Call non-emergency contact if: your symptoms worsen and you have a fever Follow-up/Referrals: PCP,NO [Primary Care Provider] - Diet: Regular Addtl Attending Provider Instructions: You were admitted to the hospital with an abscessed tooth that was also causing facial cellulitis. We treated you with IV antibiotics in the hospital and it got better. We are discharging you home with an additional 14 days of the oral medications Cefdinir and Metronidazole. Please take them as prescribed along with the probiotic. also prescribed you an additional dose of Diflucan for the yeast infection to be taken on 10/01/2022 if you are still having symptoms. The Diflucan dose we gave you in the hospital works for about 3 days so you still have it working in your system. Please keep scheduled followup with your dentist and we will work with you to schedule follow up with a primary care provider. We also noticed that you have an anemia. Your iron levels were on the lower end so we prescribed you iron tablets to help with that as well. If you notice that it makes you constipated, you can start taking it every other day to help with that. We recommend following up with a primary care provider about this as well. Pending Studies at Discharge: No Stand-Alone Forms: My [employer], Smoking Cessation Medications and DC Order Prescriptions: New ferrous sulfate 325 mg (65 mg iron) Tablet,Delayed Release (Dr/Ec) 325 mg PO QAM Qty: 30 0RF Saccharomyces boulardii [Florastor] 250 mg Capsule 250 mg PO DAILY Qty: 30 0RF chlorhexidine gluconate 0.12 % Mouthwash 15 ml MT BID PRN (Reason: oral wash) Qty: 30 0RF fluconazole [Diflucan] 150 mg tablet 150 mg PO DAILY Qty: 1 0RF Rx Instructions: Take 1 pill on 10/01/2022 if still having symptoms. cefdinir 300 mg capsule 300 mg PO BID 14 Days Qty: 28 0RF metronidazole 500 mg tablet 500 mg PO TID 14 Days Qty: 42 0RF Continued esomeprazole magnesium [Nexium] 20 mg capsule,delayed release(DR/EC) 20 mg PO DAILY Discharge Orders: Discharge Order (Routine); Ordered 09/29/22 Ordered By: Casi Mcnulty Admission Data Admit Date/Time: 09/28/22 17:02 Attending Provider: Casi Mcnulty Admit Provider: Larisa Kidd Primary Care Provider: PCP,NO Other Providers: Larisa Kidd ; Koffi Conklin
== END 2022-09-29 13:10 | disposition home or self-care (01) | DRG 603 ==
LOC: 3E 12:16 → ED 12:16 → SUATTDRO 16:20 → 3E 17:26